=== PATIENT | male | born 1980 | race Asian ===

== ENCOUNTER 2016-08-27 20:46 | Emergency (ER) | payer SELFPAY ==
[~2016-08-27] VITALS: Ht 180.3 cm; Wt 124.7 kg
[~2016-08-27 20:46] MED LIST: PRED50TA PO; PROAIR HFA8.5 GM INH; SULF1TAB24 PO; TRAM-29 PO
[2016-08-27 21:08] VITALS: BP 124/79
[2016-08-27] MEDS ORDERED: AMOX1TAB61 PO (21:14)
--- NOTE | 2016-08-27 21:15 | PHYS DOC ---
Past Medical History Past Medical History: No Pertinent History Past Surgical History: Other Additional Past Surgical Histo: spinal surgery Alcohol Use: None Drug Use: None Adult General Chief Complaint Chief Complaint: FLU SYMPTOM HPI HPI Patient is a 36 year old male presents to emergency department stating that he' s been having a fever at home, cough congestion with frontal sinus pressure. He states his cough is been nonproductive. He states he's been taken Advil for the discomfort with no relief. Patient states that he has had no nasal drainage or discharge noted. Review of Systems Review of Systems Constitutional: subjective fever Eyes: Denies change in visual acuity, redness, or eye pain [] HENT: nasal congestion denies sore throat [] Respiratory: cough denies shortness of breath [] Cardiovascular: No additional information not addressed in HPI [] GI: Denies abdominal pain, nausea, vomiting, bloody stools or diarrhea [] : Denies dysuria or hematuria [] Musculoskeletal: Denies back pain or joint pain [] Integument: Denies rash or skin lesions [] Neurologic: Denies headache, focal weakness or sensory changes [] Allergies Allergies Allergies Coded Allergies Type Severity Reaction Last Updated Verified No Known Drug Allergies 06/21/14 No Physical Exam Physical Exam Constitutional: Well developed, well nourished, no acute distress, non-toxic appearance. [] HENT: Normocephalic, atraumatic, bilateral external ears normal, oropharynx moist, no oral exudates, nose normal. Vital tympanic membranes appear to be normal. Patient with frontal and maxillary sinus tenderness noted. Bilateral nares appear to be swollen and erythematous. Throat with erythematous no exudate noted. Eyes: PERRLA, EOMI, conjunctiva normal, no discharge. [] Neck: Normal range of motion, no tenderness, supple, no stridor. [] Cardiovascular:Heart rate regular rhythm, no murmur [] Lungs & Thorax: Bilateral breath sounds clear to auscultation [] Skin: Warm, dry, no erythema, no rash. [] Back: No tenderness Extremities: No tenderness, no cyanosis, no clubbing, ROM intact, no edema. [] Neurologic: Alert and oriented X 3, normal motor function, normal sensory function, no focal deficits noted. [] Psychologic: Affect normal, judgement normal, mood normal. [] EKG EKG [] Radiology/Procedures Radiology/Procedures [] Course & Med Decision Making Course & Med Decision Making Pertinent Labs and Imaging studies reviewed. (See chart for details) Patient will be placed on Augmentin for sinusitis infection. She was also encouraged to use Sudafed [id number] to help with the sinus pressure, Mucinex DM to help with the congestion and cough. Also recommended Tylenol and ibuprofen for fever chills and generalized body aches and discomfort. Recommended plenty of fluids. Patient will be discharged home in stable condition signs symptoms to return back to emergency department as been provided. Patient is asking for work note for tonight. [] Dragon Disclaimer Dragon Disclaimer This electronic medical record was generated, in whole or in part, using a voice recognition dictation system. Departure Departure Impression: Primary Impression: Sinusitis Disposition: HOME, SELF-CARE Condition: STABLE Referrals: NO PCP (PCP) Patient Instructions: Sinusitis, [id number] Additional Instructions: You've been treated in the emergency department for a sinus infection. Take Sudafed to help with the frontal and maxillary sinus tenderness this will help promote pain relief. Take instructed by house calls nurse. Mucinex DM [id number] will help promote drainage and will also help with cough. Take this as directed by house calls nurse. Tylenol or ibuprofen for fever chills or generalized body aches and discomfort. Medication as prescribed. Drink plenty of fluids. Follow-up through primary care physician next 3-5 days. Return back to emergency prior signs symptoms of become worse. Scripts Amoxicillin/Potassium Clav (Augmentin 875-125 Tablet)1 Each Tablet1 Tab PO BID # 20 TAB Prov:SUKHWINDER ASKEW APRN 08/27/16 SUKHWINDER ASKEW APRN Aug 27, 2016 21:15
== END 2016-08-27 21:22 | disposition home or self-care (01) ==
LOC: ER 20:46
DX: J32.9 Chronic sinusitis, unspecified (principal)
CPT/HCPCS: 99283

== ENCOUNTER 2017-01-25 21:09 | Emergency (ER) | payer SELFPAY ==
[~2017-01-25] VITALS: Ht 172.7 cm; Wt 122.5 kg
[~2017-01-25 21:09] MED LIST changes: +AMOX1TAB61 PO; -TRAM-29 PO; +TRAM-48 PO
[2017-01-25 21:19] VITALS: BP 130/92
[2017-01-25] MEDS ORDERED: IPRATRPIUM/ALBUTEROL 0.5/2.5MG 3 ML NEBU. NEB ONE (21:45)
[2017-01-25] MEDS ORDERED: PROAIR HFA8.5 GM INH (21:55)
--- NOTE | 2017-01-25 21:55 | PHYS DOC ---
Past Medical History Past Medical History: No Pertinent History Past Surgical History: Other Additional Past Surgical Histo: spinal surgery Alcohol Use: None Drug Use: None Adult General Chief Complaint Chief Complaint: HEADACHE HPI HPI Patient is a 36 year old male presenting to the emergency department for multiple symptoms including sinus congestion runny nose headache dizziness cough wheezing and shortness of breath. Patient says that the symptoms have been going on for approximately 2 days and he says when he sits up he feels lightheaded so he could not go to work. The other symptoms have been going on for 2 days and his cough is nonproductive and the shortness of breath is just usually when he is ambulating. Headache is frontal is not associated with any neck stiffness fevers chills nausea vomiting or other systemic symptoms. Patient is in no obvious distress with normal vital signs. He is hoping to get a work note as he is supposed to work tonight. Review of Systems Review of Systems Constitutional: Denies fever or chills [] HENT: + nasal congestion, sore throat [] Respiratory: + cough, shortness of breath [] Cardiovascular: No additional information not addressed in HPI [] GI: Denies abdominal pain, nausea, vomiting, bloody stools or diarrhea [] Neurologic: + headache. No focal weakness or sensory changes [] Current Medications Current Medications Current Medications Medications (Trade) Dose Ordered Sig/Quinten Start Time Stop Time Status Last Admin Dose Admin Albuterol/ Ipratropium (Duoneb) 3 ml 1X ONCE 01/25/17 21:45 01/25/17 21:46 DC Dexamethasone Sodium Phosphate (Decadron) 8 mg 1X ONCE 01/25/17 22:00 01/25/17 22:01 Allergies Allergies Allergies Coded Allergies Type Severity Reaction Last Updated Verified No Known Drug Allergies 06/21/14 No Physical Exam Physical Exam Constitutional: Well developed, well nourished, no acute distress, non-toxic appearance. [] HENT: Normocephalic, atraumatic, bilateral external ears normal, oropharynx moist, no oral exudates, nasal turbinates boggy, Eyes: PERRLA, EOMI, conjunctiva normal, no discharge, no photophobia Neck: Normal range of motion, no tenderness, supple, no stridor no neck stiffness or rigidity Cardiovascular:Heart rate regular rhythm, no murmur [] Lungs & Thorax: Bilateral breath sounds diminished with expiratory wheezing Abdomen: Bowel sounds normal, soft, no tenderness, no masses, no pulsatile masses. [] Skin: Warm, dry, no erythema, no rash. [] Back: No tenderness, no CVA tenderness. [] Extremities: No tenderness, no cyanosis, no clubbing, ROM intact, no edema. [] Neurologic: Alert and oriented X 3, normal motor function, normal sensory function, no focal deficits noted. [] Current Patient Data Vital Signs Vital Signs Date Time Temp Pulse Resp B/P (MAP) Pulse Ox O2 Delivery O2 Flow Rate FiO2 01/25/17 21:19 98.4 92 14 130/92 (105) 93 Room Air 98.4 EKG EKG [] Radiology/Procedures Radiology/Procedures [] Course & Med Decision Making Course & Med Decision Making Patient with classic symptoms for sinusitis with postnasal drip and now has wheezing and cough. He ambulatory to the room with a normal gait and his vital signs are completely normal so he'll be discharged in stable condition. Even a breathing treatment and steroid here which improved aeration of his lungs and now he has normal breath sounds. He'll be discharged with instructions to use Nasonex [id number] take ibuprofen and Tylenol for his pain and albuterol for wheezing. Patient aware and agreeable with plan for discharge and verbalized understanding of the need for short-term follow-up in the strict ED return precautions discussed worsening pain shortness of breath or other general concerns. Dragon Disclaimer Dragon Disclaimer This electronic medical record was generated, in whole or in part, using a voice recognition dictation system. Departure Departure Impression: Primary Impression: Viral upper respiratory infection Additional Impression: Asthma exacerbation Disposition: 01 HOME, SELF-CARE Condition: STABLE Referrals: NO PCP (PCP) Patient Instructions: Upper Respiratory Infection, Adult Additional Instructions: USE OTC NASONEX AND BENADRYL FOR YOUR SINUS CONGESTION. TAKE IBUPROFEN AND TYLENOL FOR PAIN. USE THE ALBUTEROL FOR WHEEZING. COME BACK TO THE ED WITH ANY NEW OR WORSENING SYMPTOMS. THANK YOU! Scripts Albuterol Sulfate (PROAIR HFA INHALER) 8.5 Gm Hfa.aer.ad 1 PUFF INH Q4HRS Y for SHORTNESS OF BREATH, #1 INHALER 0 Refills Prov: FRANK MARTINEZ DO 01/25/17 Problem Qualifiers FRANK MARTINEZ DO Jan 25, 2017 21:55
[2017-01-25] MEDS ORDERED: DEXAMETHASONE SOD PHOS 20 MG/5 ML VIAL. PO ONE (22:00)
== END 2017-01-25 22:25 | disposition home or self-care (01) ==
LOC: ER 21:09
DX: J45.901 Unspecified asthma with (acute) exacerbation (principal); J06.9 Acute upper respiratory infection, unspecified
CPT/HCPCS: 94640; 99283; J1100; J7620

== ENCOUNTER 2017-07-18 22:03 | Emergency (ER) | payer OTHER ==
[2017-07-18] MEDS: NAPROXEN 500 MG TABLET PO (23:08)
== END 2017-07-18 23:32 | disposition home or self-care (01) ==
LOC: ER 22:03
DX: M25.552 Pain in left hip (principal); W00.0XXA Fall on same level due to ice and snow, initial encounter; Y93.89 Activity, other specified; Y99.8 Other external cause status; Y92.89 Other specified places as the place of occurrence of the external cause
CPT/HCPCS: 73502; 99284